=== PATIENT | male | born 1955 | race Caucasian/White ===

== ENCOUNTER 2020-11-10 13:31 | Emergency (ER) | payer MEDICARE, OTHER ==
[~2020-11-10] VITALS: Ht 180.3 cm; Wt 86.6 kg
[2020-11-10] MEDS ORDERED: NITROGLYCERIN 0.4 MG SUBL TABLET SL PRN (14:05)
[2020-11-10] MEDS ORDERED: ATOR1TAB19 PO (14:09)
[2020-11-10] MEDS ORDERED: KP F1200 PO (14:09)
[2020-11-10] MEDS ORDERED: vitamin d (14:09)
[2020-11-10] MEDS ORDERED: ASPI81CH33 PO (14:09)
[2020-11-10 14:24] LABS: BASO # 0.1 10^3/uL (0.0-0.2); BASO % 0.8 % (0.0-1.0); EOS # 0.2 10^3/uL (0.0-0.5); EOS % 2.7 % (0.0-3.0); HEMATOCRIT 45.1 % (42.0-52.0); HEMOGLOBIN 14.8 g/dl (13.5-17.5); LYMPH # 2.8 10^3/uL (1.5-5.0); LYMPH % 36.6 % (24.0-44.0); MEAN CORPUSCULAR HEMOGLOBIN 27.8 pg (27.0-33.0); MEAN CORPUSCULAR HGB CONC 32.8 g/dl (32.0-36.5); MEAN CORPUSCULAR VOLUME 84.8 fl (80.0-96.0); MONO # 0.6 10^3/uL (0.0-0.8); MONO % 8.1 % (2.0-8.0); NEUTROPHILS # 3.9 10^3/uL (1.5-8.5); NEUTROPHILS % 51.5 % (36.0-66.0); PLATELET COUNT, AUTOMATED 252 10^3/uL (150-450); RED BLOOD COUNT 5.32 10^6/uL (4.30-6.10); WHITE BLOOD COUNT 7.5 10^3/uL (4.0-10.0)
--- NOTE | 2020-11-10 14:36 | REP ---
INDICATION: CHEST PAIN. COMPARISON: None. TECHNIQUE: Portable upright AP chest radiograph. FINDINGS: The lungs are well inflated and free of infiltrate. Pleural angles are sharp. Heart size is normal. Pulmonary vasculature is not increased. EKG monitoring electrodes overlie the chest. IMPRESSION: No active disease. <Electronically signed by Aj Thomas > 11/10/20 [id number]
[2020-11-10] MEDS ORDERED: ASPIRIN 81 MG CHEW TABLET PO ONE (15:00)
[2020-11-10 15:03] LABS: ALBUMIN 3.7 GM/DL (3.2-5.2); ALT/SGPT 29 U/L (12-78); BILIRUBIN,DIRECT 0.1 MG/DL (0.0-0.2); BILIRUBIN,TOTAL 0.6 MG/DL (0.2-1.0); BLOOD UREA NITROGEN 12 MG/DL (7-18); CALCIUM LEVEL 9.3 MG/DL (8.8-10.2); CARBON DIOXIDE LEVEL 23 MEQ/L (21-32); CHLORIDE LEVEL 112 MEQ/L (98-107); CK-MB VALUE MASS 1.3 NG/ML (<3.6); CPK CREATINE PHOSPHOKINASE 121 U/L (39-308); CREATININE FOR GFR 0.84 MG/DL (0.70-1.30); GLOMERULAR FILTRATION RATE > 60.0 (>49); GLUCOSE, FASTING 127 MG/DL (70-100); LIPASE 243 U/L (73-393); MB/CK RELATIVE INDEX 1.07 (< OR =4); POTASSIUM SERUM 4.7 MEQ/L (3.5-5.1); SODIUM LEVEL 143 MEQ/L (136-145); TOTAL PROTEIN 6.9 GM/DL (6.4-8.2); TROPONIN I < 0.02 NG/ML (< 0.10)
[2020-11-10] MEDS ORDERED: ISOVUE-370 76% 100ML VIAL As Ordered ONE (15:13)
--- NOTE | 2020-11-10 15:14 | ECGEPIP ---
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
--- NOTE | 2020-11-10 15:59 | REP ---
INDICATION: pleuritic chest pain COMPARISON: None TECHNIQUE: CT angiography of the chest after the intravenous administration of 75 cc Isovue 370. Attention pulmonary arteries. FINDINGS: There is excellent visualization of the pulmonary arterial vasculature. No focal filling defects are present that would be considered consistent with acute pulmonary emboli. Limited evaluation of the thoracic aorta shows no abnormalities. There are no pleural or pericardial effusion. There is no evidence of mediastinal or hilar adenopathy. The imaged upper abdomen is in normal limits. The imaged osseous structures are within normal limits for the patient's age. Evaluation of the lung osullivan shows tiny biapical pleural blebs. No abnormal patchy opacities or significant nodules are identified. IMPRESSION: 1. There is no evidence of a pulmonary embolus. 2. Chronic changes as described above. <Electronically signed by Minor Holly > 11/10/20 [id number]
--- NOTE | 2020-11-10 16:54 | REP ---
INDICATION: bilat leg pain chest pain r/o DVT. COMPARISON: None. TECHNIQUE: Bilateral lower extremity duplex venous scanning is performed from the groin to the ankle level. FINDINGS: The deep veins are anechoic and fully compressible from the groin to the popliteal fossa in the left and right lower extremity. Color flow imaging is homogeneous. Spectral Doppler interrogation demonstrates intact respiratory variation in flow and normal manual augmentation of flow. There is no evidence of deep vein thrombosis in the femoropopliteal veins. There is no evidence of deep vein thrombosis in the visualized calf veins. IMPRESSION: No evidence of DVT in the femoropopliteal veins. No DVT in the visible portions of the calf veins. <Electronically signed by Aj Thomas > 11/10/20 [id number]
[2020-11-10 20:16] LABS: CK-MB VALUE MASS 1.4 NG/ML (<3.6); CPK CREATINE PHOSPHOKINASE 87 U/L (39-308); MB/CK RELATIVE INDEX 1.61 (< OR =4); TROPONIN I < 0.02 NG/ML (< 0.10)
[2020-11-10 21:31] VITALS: BP 164/72
--- NOTE | 2020-11-11 20:36 | ECGEPIP ---
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
== END 2020-11-10 21:53 | disposition home or self-care (01) ==
LOC: M ED 13:31
DX: R07.9 Chest pain, unspecified (principal); E78.9 Disorder of lipoprotein metabolism, unspecified; Z87.891 Personal history of nicotine dependence
CPT/HCPCS: 36415; 71045; 71275; 80048; 80076; 82550; 82553; 83690; 84484; 85025; 93005; 93041; 93970; 94760; 99285; Q9967